=== PATIENT | female | born 1985 | race Caucasian/White ===

== ENCOUNTER → 2017-09-29 14:20 | Outpatient (CLI) | payer BC, SELFPAY ==
[2017-09-29 15:46] LABS: Absolute Lymphocyte Count 1.69 X10^3/ul (0.83-4.51); Basophil# 0.04 X10^3/uL; Basophil% 0.6 % (0-1); Eosinophil# 0.05 X10^3/uL; Eosinophils% 0.8 % (0-5); Hematocrit 38.5 % (37-47); Hemoglobin 12.7 g/dl (12.0-15.0); Lymphocyte # 1.69 X10^3/ul (4.0); Lymphocyte % 25.6 % (19-41); Mean Corpuscular Hgb 31.3 pg (27.0-32.0); Mean Corpuscular Volume 94.8 fL (81-99); Mean Platelet Vol. 10.3 fl (6.2-12.0); Monocyte# 0.77 X10^3/uL; Monocyte% 11.7 % (0-10); Neutrophil # 4.04 X10^3/uL (2.7-7.7); Neutrophil % 61.1 % (47-70); Platelet Count 288 K/mm3 (150-450); RBC Distribution Width CV 12.5 % (11.6-14.6); RBC Distribution Width SD 42.1 fl (35.1-43.9); Red Blood Count 4.06 M/mm3 (4.2-5.4); White Blood Count 6.6 K/mm3 (4.4-11.0)
[2017-09-29 15:47] LABS: POSITIVE COUNT NO; POSITIVE DIFFERENTIAL NO; POSITIVE MORPHOLOGY NO
[2017-09-29 16:12] LABS: ALB/GLOB Ratio 1.1 RATIO (0.9-2.4); AST(SGOT) 9 U/L (15-37); Alanine Aminotransfer ALT/SGPT 15 U/L (13-56); Albumin, Serum 3.9 g/dL (3.2-5.0); Alkaline Phosphatase 50 U/L (45-117); Anion Gap 9 (5-15); BUN 10 mg/dL (7-18); BUN/Creat Ratio 13.6 RATIO (10-20); Calcium,Total 8.5 mg/dL (8.5-10.1); Chloride 105 mmol/L (98-107); Creatinine, Serum 0.74 mg/dL (0.55-1.02); EST Glomerular Filtration Rate 98 mL/min (>60); Est Glom Filt Rate - Afr Amer 118 mL/min (>60); Globulin 3.6 g/dL (2.2-4.2); Glucose 90 mg/dL (70-110); Potassium 3.5 mmol/L (3.5-5.1); Protein, Total 7.5 g/dL (6.4-8.2); Sodium Level 139 mmol/L (136-145); Thyroid Stim Hormone (TSH) 1.11 uIU/mL (0.358-3.74)
== END ==
PROVIDERS: Visit Provider Family Medicine
DX: Z13.0 Encounter for screening for diseases of the blood and blood-forming organs and certain disorders involving the immune mechanism (principal); Z13.29 Encounter for screening for other suspected endocrine disorder; Z79.899 Other long term (current) drug therapy
CPT/HCPCS: 36415; 80053; 84443; 85025

== ENCOUNTER → 2017-11-03 20:34 | Outpatient (CLI) | payer BC, SELFPAY | PROVIDERS: Visit Provider Family Medicine | DX: Z01.419 Encounter for gynecological examination (general) (routine) without abnormal findings (principal) ==

== ENCOUNTER → 2020-03-05 17:41 | Outpatient (CLI) | payer OTHER, SELFPAY | PROVIDERS: Referring Provider Nurse Practitioner Adult Health; Visit Provider Nurse Practitioner Adult Health | DX: Z03.818 Encounter for observation for suspected exposure to other biological agents ruled out (principal) | CPT/HCPCS: 87635; G2023; U0003 ==

== ENCOUNTER 2020-08-02 19:22 | Emergency (ER) | payer OTHER, SELFPAY ==
[2020-08-02 19:23] VITALS: BP 125/76; PULSE 97; RESP 16; TEMP 36.4; O2SAT 100; BMI 23.1
[2020-08-02 19:46] LABS: Red Blood Cells-Urine 0 SEEN /hpf (0-5)
[2020-08-02 19:56] LABS: Absolute Lymphocyte Count 2.03 X10^3/uL (0.83-4.51); Absolute Neutrophil Count 6.8 X10^3/uL (2.0-7.7); Basophil# 0.03 X10^3/uL; Basophil% 0.3 % (0-1); Eosinophil# 0.04 X10^3/uL; Eosinophils% 0.4 % (0-5); Hematocrit 43.4 % (37-47); Hemoglobin 14.9 g/dL (12.0-15.0); Lymphocyte # 2.03 X10^3/ul (4.0); Lymphocyte % 20.9 % (19-41); Mean Corp Hgb Conc 34.3 g/dL (32-36); Mean Corpuscular Volume 93.1 fL (81-99); Mean Platelet Vol. 9.2 fl (6.2-12.0); Monocyte# 0.79 X10^3/uL; Monocyte% 8.1 % (0-10); NRBC Flagged by Analyzer 0 % (0-5); Platelet Count 388 K/mm3 (150-450); RBC Distribution Width SD 41.2 fl (35.1-43.9); Red Blood Count 4.66 M/mm3 (4.2-5.4); White Blood Count 9.7 K/mm3 (4.4-11.0)
[2020-08-02] MEDS: Ondansetron 4 MG/2 ML Vial IV (19:56)
[2020-08-02 19:57] LABS: Color, Urine Yellow (Yellow); Glucose, Dipstick Normal (Normal); Leukocyte Esterase-Dipstick 500 /ul (Negative); Nitrite-Dipstick Negative (Negative); Occult Blood-Urine 10 /ul (Negative); Protein-Dipstick 30 mg/dl (Negative); Specific Gravity, Urine 1.025 (1.002-1.030); Urine Bilirubin Dipstick Negative (Negative); Urine Clarity Cloudy (Clear); Urine Urobilinogen 1 mg/dl (Normal)
[2020-08-02] MEDS: 0.9% Normal Saline 1,000 ML 1000 ML IV (19:59)
[2020-08-02] MEDS: morphine 8 MG/ML Syringe 6 MG IV (19:59)
[2020-08-02 20:00] LABS: Ketone-Dipstick 150 mg/dl (Negative)
[2020-08-02 20:03] LABS: Squamous Epithelial Cells - UA 10-25 SEEN /hpf (5-10)
[2020-08-02 20:04] LABS: Bacteria 1+ /hpf (None Seen); Mucous, Urine 1+ /hpf (<or=2+); White Blood Cells 5-10 SEEN /hpf (0-5)
[2020-08-02 20:08] LABS: Internal QC Validated? YES +Cl - CLEAR BKGD; Pregnancy, Serum, hCG Quali. POSITIVE Negative
--- NOTE | 2020-08-02 20:17 | ED.VIS.GEN ---
History of Present Illness Chief Complaint: Nausea/Vomiting Informant: Patient Onset: Days Maximum Severity: Mild Narrative: Vomiting and loose stool. The patient is complaining of the above for the last few days, she indicates she had missed a. Has some breast discomfort took a home test that was positive, she is having no pelvic pain or vaginal bleeding or discharge history of ectopic , she would be uncomplicated prior 2 pregnancies last about 10 years ago. 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 negative no recent exposures to anyone has been sick otherwise, no antibiotics no sick contacts or tainted food bowel habits show no blood urinary habits normal no fever no cough no real abdominal pain just a persistent nausea Past Medical History - Allergies and Home Meds Allergies/Adverse Reactions: Allergies No Known Allergies Allergy (Verified 08/02/20 19:25) Primary Care Physician: Care Physician,No Primary [Primary Care Provider] - Past Medical History: - - Cholecystectomy and as above Smoking Status: Never smoker Review of Systems General: Denies: Chills, Fever, Sweats Eyes: Denies: Visual changes - bilaterally, Diplopia ENT: Denies: Rhinorrhea, Sore throat Cardiovascular: Denies: Chest pain, Palpitations Respiratory: Denies: Dyspnea, Cough, Dyspnea on exertion Gastrointestinal: Reports: Nausea, Diarrhea. Denies: Abdominal pain, Melena, Hematochezia Genitourinary: Denies: Dysuria, Hematuria, Frequency Musculoskeletal: Denies: Back pain, Extremity Pain Skin: Denies: Rash, Wounds Neurological: Denies: Headache, Weakness, Numbness Physical Exam Vital Signs/Narrative: Vital Signs Temp Pulse Resp BP Pulse Ox 08/02/20 19:23 97.5 F L 97 16 125/76 H 100 General: Well nourished, Well developed, No Acute Distress Head: Normocephalic, Atraumatic Eyes: Perrl, EOMI ENT: Moist mucous membranes, No rhinorrhea Neck: Supple, Nontender Cardiovascular: Regular rate, Regular rhythm, No murmurs Respiratory: No distress, CTA bilaterally, Chest nontender Abdomen: Soft, Nontender, Nondistended, Normal bowel sounds Back: Nontender, Normal Inspection Extremities: Nontender, No edema Skin: Normal color, No rash Neurological: Alert, Oriented x3, Cranial nerves II-XII grossly intact, Normal Strength, Normal Sensation Psychological: Normal affect, Normal Mood Diagnostic/Tx/Re-eval - Medical Decision Making The patient's vital signs are unremarkable the abdomen shows a nonspecific sense of crampy discomfort no rebound guarding organomegaly, she has had the vomiting associate with loose stools, no coronavirus exposures or exposures to tainted food or conditions. Clinically she looks well given her reported given all the above IV fluids ED screening evaluation The patient's ED screening evaluation generally unremarkable the UA showed signs of UTI versus contamination it was sent for culture she was given IV Rocephin, she complained of a nonspecific sharp chest pain while she was laying flat in the bed EKG was done that showed sinus rhythm no acute injury intervals within normal range I discussed all the above with her she is comfortable with discharge home she is now believes she may have contacted some type of GI bug I explained to her again the exact etiology of why she is having vomiting and loose stools is unclear it certainly possible but the differential is very broad she is able to hydrate herself she will be started on Keflex Zofran she will make arrangements see [facility] and return for change in symptoms Home stable Final impression vomiting, , ED Disposition - Plan for ED Patient: Diagnosis: Vomiting affecting Instructions: ED Vomiting (Adult), ED Vomiting and Diarrhea ..., ED Food Poison Or Gastroenteritis Prescriptions: Cephalexin [Keflex] 500 mg PO Q6 #40 cap Prescription Printed Ondansetron [Zofran Odt] 8 mg PO Q8H PRN PRN #20 tab PRN Reason: Nausea Prescription Printed Referrals: Care Physician,No Primary [Primary Care Provider] - Aly Del Castillo MD [STAFF PHYSICIAN] -
[2020-08-02 20:19] LABS: AST(SGOT) 17 U/L (15-37); Alanine Aminotransfer ALT/SGPT 15 U/L (13-56); Alkaline Phosphatase 60 U/L (45-117); Anion Gap 10 (5-15); BUN 10 mg/dL (7-18); BUN/Creat Ratio 14.8 RATIO (10-20); Calcium,Total 8.8 mg/dL (8.5-10.1); Chloride 104 mmol/L (98-107); Creatinine, Serum 0.67 mg/dL (0.55-1.02); EST Glomerular Filtration Rate 106 mL/min (>60); Est Glom Filt Rate - Afr Amer 129 mL/min (>60); Estimated Creatinine Clearance 119.35 ml/min; Globulin 4.2 g/dL (2.2-4.2); Glucose 93 mg/dL (74-106); Lipase 66 U/L (73-393); Potassium 3.7 mmol/L (3.5-5.1); Protein, Total 8.2 g/dL (6.4-8.2); Sodium Level 136 mmol/L (136-145)
--- NOTE | 2020-08-02 21:01 | ED.RN ---
RN TO BEDSIDE TO GIVE ICE CHIPS PER PT REQUEST. PT C/O NONSPECIFIC CHEST PAIN. DR. BIRMINGHAM NOTIFIED AT THIS TIME. RESPIRATORY NOTIFIED AT THIS TIME TO OBTAIN EKG.
--- NOTE | 2020-08-02 21:18 | EKG12_ITS ---
Test Reason : CP Blood Pressure : / mmHG Vent. Rate : 053 BPM Atrial Rate : 053 BPM P-R Int : 130 ms QRS Dur : 078 ms QT Int : 444 ms P-R-T Axes : 055 043 021 degrees QTc Int : 416 ms Sinus bradycardia Otherwise normal ECG Confirmed by GLENYS FALLON, PERRY ([id number]), editorial specialist FLORY CALABRESE ([id number]) on 08/05/2020 8:41:20 AM Referred By: CODY Confirmed By:PERRY VERONICA MD
[2020-08-02] MEDS: Ceftriaxone 1 GM/50 ML BAG IV (21:42)
[2020-08-02 22:21] VITALS: BP 102/66; PULSE 61; RESP 18; O2SAT 100
== END 2020-08-02 22:23 | disposition home or self-care (01) ==
LOC: ED 20:09
PROVIDERS: Emergency Provider Emergency Medicine
DX: O21.9 Vomiting of pregnancy, unspecified (principal); Z3A.00 Weeks of gestation of pregnancy not specified
CPT/HCPCS: 80053; 81001; 83690; 84703; 85025; 87086; 87088; 93005; 96365; 96375; 99284; J7030; A4216; J2405

== ENCOUNTER 2020-08-17 16:04 | Emergency (ER) | payer OTHER, SELFPAY ==
[2020-08-17 16:05] VITALS: BP 130/79; PULSE 117; RESP 16; TEMP 36.1; O2SAT 100; BMI 23.5
--- NOTE | 2020-08-17 16:16 | ED.DCSUM_ITS ---
History of Present Illness Chief Complaint: Nausea/Vomiting Narrative: This patient is a 35-year-old female who presents with nausea and vomiting. She is G3, P2. She is approximately 10 weeks by dates. She presents with 1 day of severe nausea and vomiting. She also complains of some myalgias. No diarrhea. No pelvic or abdominal pain. No vaginal bleeding. No urinary symptoms. She was seen a couple of weeks ago for similar symptoms. [place] was helping but she ran out of this. She has not yet arranged for any obstetrics follow-up. Past Medical History - Allergies and Home Meds Allergies/Adverse Reactions: Allergies No Known Allergies Allergy (Verified 08/17/20 16:07) Primary Care Physician: Care Physician,No Primary [Primary Care Provider] - Past Medical History: None Smoking Status: Former smoker Review of Systems All systems negative except as indicated General: Denies: Fever Eyes: Denies: Visual changes - bilaterally Cardiovascular: Denies: Chest pain Respiratory: Denies: Dyspnea Gastrointestinal: Reports: Nausea, Vomiting. Denies: Abdominal pain Musculoskeletal: Reports: Myalgias Skin: Denies: Rash Neurological: Denies: Headache Hematologic: Denies: Easy bruising Allergy: Denies: Uticaria Physical Exam Vital Signs/Narrative: Vital Signs Temp Pulse Resp BP Pulse Ox 08/17/20 16:05 96.9 F L 117 H 16 130/79 H 100 Inital Vital Signs reviewed: Yes General: Well nourished Head: Normocephalic Eyes: EOMI ENT: Moist mucous membranes Cardiovascular: Regular rhythm, Tachycardia Respiratory: No distress, CTA bilaterally Abdomen: Soft, Nontender, Nondistended Extremities: Nontender Skin: Normal color Neurological: Alert Psychological: Normal affect Diagnostic/Tx/Re-eval Laboratory Results 08/17/20 08/17/20 08/17/20 16:45 17:30 17:30 WBC 12.4 H RBC 4.29 Hgb 13.8 Hct 40.8 MCV 95.1 MCH 32.2 H MCHC 33.8 RDW Std Deviation 41.6 RDW Coeff of Imtiaz 11.9 Plt Count 379 MPV 9.3 Immature Gran % (Auto) 0.400 Neut % (Auto) 85.1 H Lymph % (Auto) 9.1 L [place] % (Auto) 5.2 Eos % (Auto) 0.0 Baso % (Auto) 0.2 Absolute Neuts (auto) 10.5 H Absolute Lymphs (auto) 1.13 Nucleated RBC % 0 Sodium 139 Potassium 4.2 Chloride 109 H Carbon Dioxide 23.0 Anion Gap 7 BUN 8 Creatinine 0.54 L Estim Creat Clear Calc 142.75 Est GFR (MDRD) Af Amer 167 Est GFR (MDRD) Non-Af 138 BUN/Creatinine Ratio 14.9 Glucose 90 Calcium 8.4 L Total Bilirubin 0.40 AST 7 L ALT 14 Alkaline Phosphatase 50 Total Protein 7.1 Albumin 3.4 Globulin 3.7 Albumin/Globulin Ratio 0.9 Urine Color Yellow Urine Clarity Sl. Cloudy Urine pH 5.0 Ur Specific [place] 1.030 Urine Protein 30 H Urine Glucose (UA) Normal Urine Ketones 150 H Urine Occult Blood 10 H Urine Nitrite Negative Urine Bilirubin Negative Urine Urobilinogen Normal Ur Leukocyte Esterase 25 H Urine RBC 0-5 SEEN Urine WBC 0-5 SEEN Ur Squamous Epith Cells 0-5 SEEN Urine Bacteria RARE Urine Mucus 0 SEEN - Medical Decision Making Laboratory studies as above notable only for ketones in the urine consistent with a component of dehydration. She was treated with IV fluid and Zofran. She is resting comfortably on reevaluation, she has not vomited but does still have some mild nausea. We will p.o. challenge prior to discharge. Patient was given a referral to obstetrics as well as a prescription for Zofran. She does understand to return for new or worsening symptoms otherwise to follow-up as an outpatient and she was discharged home. ED Disposition - Plan for ED Patient: Disposition: Home or Assisted Living Diagnosis: Vomiting affecting Instructions: ED Vomiting (Adult), ED Hyperemesis Gravidarum Prescriptions: Ondansetron [Zofran Odt] 4 mg PO Q8H PRN PRN #10 tab PRN Reason: Nausea Prescription Printed Referrals: Care Physician,No Primary [Primary Care Provider] - Matilda Her DO [STAFF PHYSICIAN] -
[2020-08-17] MEDS: 0.9% Normal Saline 1,000 ML 999 ML IV (16:27)
[2020-08-17] MEDS: Ondansetron 4 MG/2 ML Vial IV (16:27)
[2020-08-17 16:49] LABS: Mucous, Urine 0 SEEN /hpf (<or=2+)
[2020-08-17 17:18] LABS: Color, Urine Yellow (Yellow); Glucose, Dipstick Normal (Normal); Leukocyte Esterase-Dipstick 25 /ul (Negative); Nitrite-Dipstick Negative (Negative); Occult Blood-Urine 10 /ul (Negative); Protein-Dipstick 30 mg/dl (Negative); Urine Bilirubin Dipstick Negative (Negative); Urine Clarity Sl. Cloudy (Clear); Urine Urobilinogen Normal (Normal)
[2020-08-17 17:21] LABS: Bacteria RARE /hpf (None Seen); Ketone-Dipstick 150 mg/dl (Negative); Red Blood Cells-Urine 0-5 SEEN /hpf (0-5); Squamous Epithelial Cells - UA 0-5 SEEN /hpf (5-10); White Blood Cells 0-5 SEEN /hpf (0-5)
[2020-08-17 17:39] LABS: Absolute Lymphocyte Count 1.13 X10^3/uL (0.83-4.51); Absolute Neutrophil Count 10.5 X10^3/uL (2.0-7.7); Basophil# 0.02 X10^3/uL; Basophil% 0.2 % (0-1); Hematocrit 40.8 % (37-47); Hemoglobin 13.8 g/dL (12.0-15.0); Lymphocyte # 1.13 X10^3/ul (4.0); Lymphocyte % 9.1 % (19-41); Mean Corp Hgb Conc 33.8 g/dL (32-36); Mean Corpuscular Hgb 32.2 pg (27.0-32.0); Mean Corpuscular Volume 95.1 fL (81-99); Mean Platelet Vol. 9.3 fl (6.2-12.0); Monocyte# 0.65 X10^3/uL; Monocyte% 5.2 % (0-10); NRBC Flagged by Analyzer 0 % (0-5); Neutrophil # 10.54 X10^3/uL (2.7-7.7); Neutrophil % 85.1 % (47-70); Platelet Count 379 K/mm3 (150-450); RBC Distribution Width CV 11.9 % (11.6-14.6); RBC Distribution Width SD 41.6 fl (35.1-43.9); Red Blood Count 4.29 M/mm3 (4.2-5.4); White Blood Count 12.4 K/mm3 (4.4-11.0)
[2020-08-17 17:52] LABS: ALB/GLOB Ratio 0.9 RATIO (0.9-2.4); AST(SGOT) 7 U/L (15-37); Alanine Aminotransfer ALT/SGPT 14 U/L (13-56); Albumin, Serum 3.4 g/dL (3.2-5.0); Alkaline Phosphatase 50 U/L (45-117); Anion Gap 7 (5-15); BUN 8 mg/dL (7-18); BUN/Creat Ratio 14.9 RATIO (10-20); Calcium,Total 8.4 mg/dL (8.5-10.1); Chloride 109 mmol/L (98-107); Creatinine, Serum 0.54 mg/dL (0.55-1.02); EST Glomerular Filtration Rate 138 mL/min (>60); Est Glom Filt Rate - Afr Amer 167 mL/min (>60); Estimated Creatinine Clearance 142.75 ml/min; Globulin 3.7 g/dL (2.2-4.2); Glucose 90 mg/dL (74-106); Potassium 4.2 mmol/L (3.5-5.1); Protein, Total 7.1 g/dL (6.4-8.2); Sodium Level 139 mmol/L (136-145)
[2020-08-17 18:30] VITALS: PULSE 97; RESP 16; O2SAT 99
== END 2020-08-17 18:31 | disposition home or self-care (01) ==
PROVIDERS: Emergency Provider Emergency Medicine
DX: O21.9 Vomiting of pregnancy, unspecified (principal); Z87.891 Personal history of nicotine dependence; Z3A.10 10 weeks gestation of pregnancy
CPT/HCPCS: 80053; 81001; 85025; 96374; 99283; A4216; J2405

== ENCOUNTER 2020-09-17 20:03 | Emergency (ER) | payer OTHER, SELFPAY ==
[2020-09-17 20:04] VITALS: BP 110/59; PULSE 87; RESP 16; TEMP 36.3; O2SAT 98; BMI 22.8
--- NOTE | 2020-09-17 20:44 | ED.VISSUMM ---
- ER Visit Summary Date of Service: 09/17/20 Chief Complaint: [Nausea and vomiting] History of Present Illness: The patient is a 35 F [presents to the emergency department complaint of nausea and vomiting that is been going on for the last 2 days patient states that she believes that she is about 3 months . She has had several visits to the emergency department for similar complaint of vomiting related to . Her last menstrual period she believes was mid May. She is . She has not followed up with [facility] yet. Patient states she does not have time. Patient denies any abdominal pain or vaginal bleeding. Patient has had prior cholecystectomy. No other medical history. She denies urinary symptoms. She denies Covid symptoms.] Physical Examination: [HEENT-PERRLA, EOMI. Cranial nerves II through XII grossly intact. TMs clear. Mucous membranes moist. No adenopathy. Cardiovascular-regular rate and rhythm without murmur or ectopy Lungs-clear to auscultation, chest wall stable without crepitus or subcu emphysema Abdomen-normoactive bowel sounds, soft. Patient has some mild diffuse suprapubic tenderness to palpation. There is no rebound, rigidity, or peritoneal signs. Extremities-intact ?4, normal range of motion, normal pulses, atraumatic] Test Results: [CBC with differential showed a white count 8.6, hemoglobin 14, hematocrit 41, plates 398. Chemistries unremarkable. Urinalysis was positive for 150 ketones but no signs of infection. Pelvic ultrasound obtained showed single live intrauterine measuring 13 weeks and 3 days.] Emergency Department Course and Treatment: [Patient had an IV line established. She was medicated with Zofran 4 mg IV. She was given 2 L normal saline fluid boluses.] Treatment Plan: [We will be given a prescription for Zofran. She is advised to follow-up with [facility] for care. Patient states that she has somebody in mind that she can follow-up with.] Disposition: [Discharged home in stable condition] Impression: [Hyperemesis gravidarum Dehydration] This note was generated with [email or web address] software. It may contain incorrect words, spelling, and punctuation that were not noted in review of the chart prior to signing ED Disposition - Plan for ED Patient: Referrals: Care Physician,No Primary [Primary Care Provider] -
--- NOTE | 2020-09-17 20:46 | US_ITS ---
STUDY: TRIMESTER OBSTETRICAL ULTRASOUND REASON FOR EXAM: Female, 35 years old NAUSEA AND VOMITING LMP: 06/12/2020 TECHNIQUE: Transabdominal TECHNICAL QUALITY: Adequate. PRIOR ULTRASOUND: None. FINDINGS: There is visualization of a single gestational sac in a normal intrauterine position. The gestational sac shape is within normal limits. There is no demonstrated yolk sac. There is visualization of the placenta and is anterior and fundal. There is visualization of a live embryo. The crown-rump length (CRL) measures 7.39 cm, indicating an estimated gestational age (EGA) of 13 weeks, 3 days. There is demonstrated cardiac activity with a heart rate of 164 bpm. The biparietal diameter measures 2.34 cm corresponding to gestational age of 13 weeks and 6 days. The head circumference measures 8.91 cm corresponding to gestational age of 13 weeks and 6 days. The abdominal circumference measures 6.72 cm corresponding to a gestational age of 13 weeks and 2 days. The femur length measures 1.07 cm corresponding to gestational age of 13 weeks and 1 day. The estimated gestation age (EGA) by LMP is 13 weeks, 6 days. The estimated date of delivery (OLIVIA) by LMP is 03/19/2021. The estimated gestation age (EGA) by US is 13 weeks, 3 days. The estimated date of delivery (OLIVIA) by US is 03/22/2021. The uterus measures 15.5 x 7.1 x 11.7 cm. There is no demonstrated uterine fibroid. The cervix is closed. The right ovary measures 1.9 x 1.0 x 1.4 cm. There is no right ovarian cyst. There is no visualized right adnexal mass or complex lesion. The left ovary measures 3.7 x 2.6 x 2.6 cm. There is no left ovarian cyst. There is no visualized left adnexal mass or complex lesion. There is no fluid in the cul de sac. US/Init OB < 14Wks US IMPRESSION: Single intrauterine with an estimated gestational age by ultrasound of 13 weeks and 3 days. Electronically Signed: Estefani Ballard MD at 22:05 EST Tel , Service support ,
[2020-09-17 20:56] LABS: Absolute Lymphocyte Count 1.47 X10^3/uL (0.83-4.51); Absolute Neutrophil Count 6.4 X10^3/uL (2.0-7.7); Basophil# 0.02 X10^3/uL; Basophil% 0.2 % (0-1); Eosinophil# 0.04 X10^3/uL; Eosinophils% 0.5 % (0-5); Hematocrit 41.4 % (37-47); Hemoglobin 14.4 g/dL (12.0-15.0); Lymphocyte # 1.47 X10^3/ul (4.0); Mean Corp Hgb Conc 34.8 g/dL (32-36); Mean Corpuscular Hgb 31.6 pg (27.0-32.0); Mean Platelet Vol. 9.2 fl (6.2-12.0); Monocyte# 0.69 X10^3/uL; NRBC Flagged by Analyzer 0 % (0-5); Neutrophil # 6.41 X10^3/uL (2.7-7.7); Neutrophil % 74.2 % (47-70); Platelet Count 398 K/mm3 (150-450); RBC Distribution Width CV 11.9 % (11.6-14.6); RBC Distribution Width SD 39.7 fl (35.1-43.9); Red Blood Count 4.55 M/mm3 (4.2-5.4); White Blood Count 8.6 K/mm3 (4.4-11.0)
[2020-09-17] MEDS: 0.9% Normal Saline 1,000 ML 1000 ML IV ×2 (21:06→22:09)
[2020-09-17] MEDS: Ondansetron 4 MG/2 ML Vial IV (21:06)
[2020-09-17 21:23] LABS: Anion Gap 8 (5-15); BUN 5 mg/dL (7-18); BUN/Creat Ratio 9.5 RATIO (10-20); Calcium,Total 8.9 mg/dL (8.5-10.1); Chloride 108 mmol/L (98-107); Creatinine, Serum 0.53 mg/dL (0.55-1.02); EST Glomerular Filtration Rate 141 mL/min (>60); Est Glom Filt Rate - Afr Amer 170 mL/min (>60); Estimated Creatinine Clearance 150.88 ml/min; Glucose 82 mg/dL (74-106); Potassium 3.4 mmol/L (3.5-5.1); Sodium Level 137 mmol/L (136-145)
[2020-09-17 22:15] VITALS: BP 120/87; PULSE 77; RESP 18; O2SAT 99
[2020-09-17 22:16] LABS: Bacteria 0 SEEN /hpf (None Seen); Red Blood Cells-Urine 0 SEEN /hpf (0-5)
[2020-09-17 22:20] LABS: Color, Urine Yellow (Yellow); Glucose, Dipstick Normal (Normal); Leukocyte Esterase-Dipstick 100 /ul (Negative); Nitrite-Dipstick Negative (Negative); Occult Blood-Urine 10 /ul (Negative); Protein-Dipstick 15 mg/dl (Negative); Specific Gravity, Urine 1.025 (1.002-1.030); Urine Bilirubin Dipstick Negative (Negative); Urine Clarity Clear (Clear); Urine Urobilinogen Normal (Normal)
[2020-09-17 22:22] LABS: Ketone-Dipstick 150 mg/dl (Negative)
[2020-09-17 22:27] LABS: Mucous, Urine 2+ /hpf (<or=2+); Squamous Epithelial Cells - UA 0-5 SEEN /hpf (5-10); White Blood Cells 0-5 SEEN /hpf (0-5)
--- NOTE | 2020-09-17 22:51 | ED.DEP ---
ED Disposition - Plan for ED Patient: Instructions: ED Hyperemesis Gravidarum, Dehydration Prescriptions: Ondansetron [Zofran Odt] 4 mg PO Q8H PRN PRN #10 tab PRN Reason: Nausea Prescription Printed Referrals: Care Physician,No Primary [Primary Care Provider] - Matilda Her DO [STAFF PHYSICIAN] - 3-5 Days
[2020-09-17 23:16] VITALS: BP 112/71; PULSE 73; RESP 16; O2SAT 98
== END 2020-09-17 23:17 | disposition home or self-care (01) ==
LOC: ED 21:13
PROVIDERS: Emergency Provider Emergency Medicine
DX: O21.0 Mild hyperemesis gravidarum (principal); E86.0 Dehydration; Z3A.13 13 weeks gestation of pregnancy
CPT/HCPCS: 76801; 80048; 81001; 85025; 96361; 96374; 99283; J7030; A4216; J2405

== ENCOUNTER → 2024-08-01 | Outpatient (CLI) | payer OTHER, SELFPAY ==
--- NOTE | 2024-08-01 08:58 | US_ITS ---
STUDY: ULTRASOUND BREAST - LEFT REASON FOR EXAM: Female, 39 years old. Palpable lump left breast. TECHNIQUE: Axial and longitudinal images of the LEFT breast were performed with a high resolution ultrasound transducer. # OF IMAGES: 42 COMPARISON: Comparison is made with prior mammogram done earlier today. FINDINGS: LEFT Breast: The palpable lump corresponds to a 3.6 cm x 3.7 cm x 2.4 cm cyst with septation and low-level echoes within it. This is at the 3:00 position breast at 6 cm from the nipple. Drainage is recommended. Adjacent to this, there is a 9 mm x 10 mm x 6 mm cyst. US/Breast Limited Unilateral IMPRESSION: The palpable lump corresponds to a 3.6 cm x 3.7 cm x 2.7 cm septated cyst with low level echoes within it. Drainage is recommended. Adjacent to this, there is a 9 mm x 10 mm x 6 mm cyst. ASSESSMENT CATEGORY: BIRADS Category 4: Suspicious - Biopsy Should Be Considered. A letter regarding these results will be sent to the patient by the facility within 30 days. Electronically Signed: Emir Lester MD at 11:02 EST ,
--- NOTE | 2024-08-01 08:58 | BI_ITS ---
MAMMOGRAPHY - BILATERAL DIAGNOSTIC REASON FOR EXAM: Female, 39 years old. Palpable lump in the upper outer quadrant of the left breast. PERTINENT HISTORY: Non-contributory. TECHNIQUE: Digital bilateral breast joann (3D mammographic acquisition) in the CC and MLO projections. 2-D mediolateral oblique (MLO) and craniocaudad (CC) views of both breasts were obtained. CAD: Full Field Digital Mammography with Computer Added Detection was performed. COMPARISON: None. Baseline examination. FINDINGS: Breast Composition: The breasts are extremely dense, which lowers the sensitivity of mammography. The palpable lump corresponds to a 3 cm x 2.7 cm well-defined nodule in the upper outer aspect of the left breast. Correlation with ultrasound is recommended. No other significant abnormalities are identified. BI/DIAG MAMM W/CAD, BILAT IMPRESSION: 3 cm x 2.7 cm well-defined nodule in the upper outer aspect of the left breast corresponding to the palpable abnormality. Correlation with ultrasound is recommended. ASSESSMENT CATEGORY: BIRADS Category 0: Incomplete. Need additional imaging evaluation. A letter regarding these results will be sent to the patient by the facility within 30 days. Approximately 10% of breast cancers are not detected by mammography. A normal mammogram should not delay biopsy of a clinically suspicious abnormality. Electronically Signed: Emir Lester MD at 9:50 EST ,
== END | disposition home or self-care (01) ==
PROVIDERS: Referring Provider Nurse Practitioner Family; Visit Provider Nurse Practitioner Family
DX: N63.20 Unspecified lump in the left breast, unspecified quadrant (principal)
CPT/HCPCS: 76642; 77062; 77066; G0279

== ENCOUNTER 2024-12-26 17:47 | Emergency (ER) | payer OTHER, SELFPAY ==
[2024-12-26 17:47] VITALS: BP 158/97; PULSE 73; RESP 16; TEMP 36.9; O2SAT 100; BMI 29.8
[2024-12-26] MEDS: 0.9% Normal Saline (1000mL) 1,000 ML 999 ML IV ×2 (18:22→21:50)
[2024-12-26] MEDS: Ondansetron 4 MG/2 ML Vial IV (18:22)
[2024-12-26 18:28] LABS: Bacteria 0 SEEN /hpf (None Seen); Mucous, Urine 0 SEEN /hpf (<or=2+)
[2024-12-26 18:34] LABS: Color, Urine Straw (Yellow); Glucose, Dipstick Normal (Normal); Ketone-Dipstick Negative (Negative); Leukocyte Esterase-Dipstick 500 /ul (Negative); Nitrite-Dipstick Negative (Negative); Occult Blood-Urine Negative /ul (Negative); Protein-Dipstick Negative (Negative); Urine Bilirubin Dipstick Negative (Negative); Urine Clarity Clear (Clear); Urine Urobilinogen Normal (Normal)
--- NOTE | 2024-12-26 18:46 | CT_ITS ---
PROCEDURE: ABDOMEN/PELVIS W IV CONT ONLY 12/26/2024 REASON FOR EXAM: LOWER ABDOMINAL PAIN TECHNIQUE: Abdomen and pelvis CT with intravenous contrast. Coronal and Sagittal reconstruction series were provided. PATIENT PREPARATION: Per protocol ORAL CONTRAST TYPE: None. AMOUNT: mL One or more dose reduction techniques were used (e.g., Automated exposure control, adjustment of the mA and/or kV according to patient size, use of iterative reconstruction technique. FINDINGS: Lung bases: Lung bases are clear. Liver: Normal size. No mass. Gallbladder: Surgically absent. Spleen: Normal size. Pancreas: Normal size without evidence of mass surrounding inflammation or ductal dilation. Adrenals: Unremarkable. Kidneys: Normal renal sizes. No hydronephrosis. Bladder: Unremarkable. Reproductive Organs: Unremarkable. Bowel: No bowel obstruction. Appendix: Unremarkable. Lymph nodes: Unremarkable. Vasculature: The abdominal aorta and IVC are normal. Peritoneum / Retroperitoneum: Unremarkable. Bones: Unremarkable. Small umbilical hernia containing fat. CT/Abdomen/Pelvis W IV Cont ONLY IMPRESSION: NO ACUTE FINDINGS AT THE ABDOMEN OR PELVIS ON CONTRAST-ENHANCED CT. Reading Location: [id number]
[2024-12-26 18:47] LABS: Red Blood Cells-Urine 0-5 SEEN /hpf (0-5); Squamous Epithelial Cells - UA 0-5 SEEN /hpf (5-10); Trichomonas 0-5 SEEN /hpf (None Seen); White Blood Cells 0-5 SEEN /hpf (0-5)
[2024-12-26 18:47] LABS: Lipase 22 U/L (13-75)
[2024-12-26 18:48] LABS: ALB/GLOB Ratio 1.4 RATIO (0.9-2.4); AST(SGOT) 18 U/L (<=31); Alanine Aminotransfer ALT/SGPT 9 U/L (<=34); Albumin, Serum 4.1 g/dL (3.5-5.0); Alkaline Phosphatase 66 U/L (35-104); Anion Gap 12 (5-15); BUN 12 mg/dL (4-19); BUN/Creat Ratio 15.2 RATIO (10-20); Calcium,Total 8.4 mg/dL (7.6-11.0); Carbon Dioxide 19.3 mmol/L (21.0-32.0); Chloride 105 mmol/L (98-108); EST Glomerular Filtration Rate 96 (>60); Glucose 104 mg/dL (70-99); Potassium 3.9 mmol/L (3.3-5.1); Protein, Total 7.1 g/dL (5.9-8.4); Sodium Level 136 mmol/L (133-145); Total Bilirubin 0.19 mg/dL (0.00-1.30)
[2024-12-26 18:52] VITALS: BP 138/89; PULSE 63; RESP 16; O2SAT 100
[2024-12-26] MEDS: Morphine 4 MG/ML Syringe IV ×2 (18:52→20:47)
--- NOTE | 2024-12-26 18:54 | EX.ED.DYSGE1 ---
HPI History of Present Illness Chief Complaint: Abd Pain Narrative Narrative: Patient is a 31-year-old female with no known significant past medical history who presented to the emergency department the chief complaint of abdominal pain nausea vomiting diarrhea. She states that she was ill last Tuesday and notes that she got better over the weekend and then her symptoms restarted again. States that she does have body aches and denies any recent contacts. Patient states that she has had her gallbladder out. Patient rates her abdominal pain a 8 out of 10. PFSH PFSH Medical History Umbilical hernia Abnormal mammogram of left breast Abnormal ultrasound of breast Home Medications ?Medication ?Instructions ?Recorded ?Last Taken ?Type hyoscyamine sulfate 0.125 mg 0.25 mg (2 x 0.125 mg) PO Q4H PRN 12/26/24 Unknown Rx tablet (Levsin) dyspepsia #30 tabs ondansetron 4 mg disintegrating 4 mg PO Q6H PRN nausea and 12/26/24 Unknown Rx tablet vomiting #20 tabs Allergy/AdvReac Type Severity Reaction Status Date / Time No Known Allergies Allergy Verified 12/26/24 17:47 Surgical History H/O tubal ligation S/P cholecystectomy Social History adopted: No household members: children housing: house number of children: 3 current occupational status: employed current occupation: [employer] pets and animals: Yes pets and animals: cat(s) history of recent travel: No sexually active: Yes Smoking Status: Never smoker alcohol intake: current details: social substance use type: does not use well-balanced diet: about half the time caffeine: Yes Type: carbonated beverages Number of servings: 3 eating out: 1-3 times/week during the past year weight has: remained stable what type of physical activity do you participate in: walking kelin/gnosticist: None seatbelt use: always do you feel safe at home: Yes additional social history: boyfriend - DJ ROS ROS ED ROS Narrative Constitutional: Denies fevers, chills, headaches Cardiovascular: Denies chest pain Respiratory: Denies cough or wheezing shortness of breath Abdomen: Complains abdominal pain as noted above as well as nausea vomiting diarrhea : Denies urinary symptoms Neurological: Denies numbness, weakness, tingling Musculoskeletal: Denies back pain Skin: Denies rashes or lesions EXAM Physical Exam Narrative Exam Narrative: General: Patient was lying in bed rest comfortably did not appear to be acute distress Head: Atraumatic, normocephalic Eyes: PERRL bilaterally, EOMI bilaterally, no conjunctival injection noted Neck: Soft, supple, trachea midline Cardiovascular: Regular rate and rhythm Respiratory: Clear to auscultation bilaterally Abdomen: Soft, nondistended, tender to palpation diffusely throughout the abdomen however she had increased tenderness palpation the left lower quadrant no rebound or guarding on exam Extremities: +5/5 strength noted in the bilateral upper and lower extremities, radial pulses +2/4 in the bilateral extremities, no pedal edema exam Neurological: Patient follow commands knew that she was at [facility] year is 2024 Skin: Warm, dry, tact no rashes or lesions noted Const Vital Signs: 12/26/24 17:47 12/26/24 18:52 12/26/24 20:00 Temperature 98.4 F Temperature Source Oral Pulse Rate 73 63 82 Respiratory Rate 16 16 17 Blood Pressure 158/97 H 138/89 H 130/71 H Blood Pressure Mean 117 105 90 Pulse Ox 100 100 98 Oxygen Delivery Method Room Air Room Air Room Air MDM MDM MDM Narrative Medical decision making narrative: Patient is a 39-year-old female who presented to the emergency department chief complaint of abdominal pain nausea vomit diarrhea. On the differential diagnose includes but not limited to diverticulitis, appendicitis, viral gastroenteritis, bowel obstruction. Once workup is obtained reviewed she will be reevaluated. Patient be given IV fluids, morphine Zofran. Patient CBC was reviewed showed no evidence leukocytosis white blood count normal 11, hemoglobin is at 12.6, plate count was noted be normal at 275. Patient sodium was 136, potassium normal 3.9, creatinine was 0.80. Patient AST and ALT were 18 and 9 respectively with a normal total bilirubin of 0.19. Patient lipase normal at 22, test negative. Patient urinalysis reviewed and showed no evidence of infection. Patient CT abdomen pelvis with IV contrast was reviewed showed no acute processes. Reevaluation the patient she is still having pain therefore she was given Bentyl. On reevaluation the patient again she is still having pain she was given morphine again. On reevaluation again for a third time she is still having pain therefore she was given Levsin. I offered her admission to the hospital and she states that she wanted to see if the Levsin would help her. On reevaluation the patient again she would like to go home she is feeling better. I once again offered her admission for observation for her intractable abdominal pain of unknown etiology however she states that she wants to go home and she will come back if her symptoms worsen. Patient will be given prescriptions for Levsin and Zofran. She was advised follow-up with primary care physician outpatient setting return with worsening symptoms or concerns. She is agreeable this plan all course concerns answered she is discharged home in stable condition. Family member bedside is also agreeable with this. Lab Data Labs: Laboratory Results - last 24 hr 12/26/24 12/26/24 12/26/24 18:13 18:13 18:24 WBC Cancelled Corrected WBC Cancelled RBC Cancelled Hgb Cancelled Hct Cancelled MCV Cancelled MCH Cancelled MCHC Cancelled RDW Std Deviation Cancelled RDW Coeff of Imtiaz Cancelled Plt Count Cancelled MPV Cancelled Immature Gran % (Auto) Cancelled Neut % (Auto) Cancelled Lymph % (Auto) Cancelled Payne % (Auto) Cancelled Eos % (Auto) Cancelled Baso % (Auto) Cancelled Absolute Neuts (auto) Cancelled Absolute Lymphs (auto) Cancelled Total Counted Cancelled Neutrophils % (Manual) Cancelled Band Neutrophils % Cancelled Lymphocytes % (Manual) Cancelled Monocytes % (Manual) Cancelled Eosinophils % (Manual) Cancelled Basophils % (Manual) Cancelled Metamyelocytes % Cancelled Myelocytes % Cancelled Promyelocytes % Cancelled Blast Cells % Cancelled Plasma Cell % (Manual) Cancelled Other Cells % Cancelled Nucleated RBC % Cancelled Nucleated RBCs/100 WBC Cancelled Differential Comment Cancelled Diff Path Review Cancelled Hypersegmented Neuts Cancelled Atypical Lymphocytes Cancelled Reactive Lymphocytes Cancelled Smudge Cells Cancelled Toxic Granulation Cancelled Toxic Vacuolation Cancelled Dohle Bodies Cancelled Juana Rods Cancelled Platelet Estimate Cancelled Plt Morphology Comment Cancelled RBC Morphology Cancelled Cancelled Polychromasia Cancelled Hypochromasia Cancelled Basophilic Stippling Cancelled Anisocytosis Cancelled Microcytosis Cancelled Macrocytosis Cancelled Spherocytes Cancelled Sickle Cells Cancelled Target Cells Cancelled Tear Drop Cells Cancelled Ovalocytes Cancelled Stomatocytes Cancelled Null[place] Bodies Cancelled [place] Cells Cancelled Bite Cells Cancelled Crenated Cell Cancelled Acanthocytes (Spur) Cancelled Rouleaux Cancelled Schistocytes Cancelled Sodium 136 Potassium 3.9 Chloride 105 Carbon Dioxide 19.3 L Anion Gap 12 BUN 12 Creatinine 0.80 Estim Creat Clear Calc 111.30 Est GFR (MDRD) Non-Af 96 BUN/Creatinine Ratio 15.2 Glucose 104 H Calcium 8.4 Total Bilirubin 0.19 AST 18 ALT 9 Alkaline Phosphatase 66 Total Protein 7.1 Albumin 4.1 Globulin 3.0 Albumin/Globulin Ratio 1.4 Lipase 22 Serum , Qual NEGATIVE Urine Color Straw Urine Clarity Clear Urine pH 6.0 Ur Specific [place] 1.010 Urine Protein Negative Urine Glucose (UA) Normal Urine Ketones Negative Urine Occult Blood Negative Urine Nitrite Negative Urine Bilirubin Negative Urine Urobilinogen Normal Ur Leukocyte Esterase 500 H Urine RBC 0-5 SEEN Urine WBC 0-5 SEEN Ur Squamous Epith Cells 0-5 SEEN Urine Bacteria 0 SEEN Urine Mucus 0 SEEN Urine Trichomonas 0-5 SEEN 12/26/24 19:46 WBC 11.0 Corrected WBC RBC 4.07 L Hgb 12.6 Hct 37.3 MCV 91.6 MCH 31.0 MCHC 33.8 RDW Std Deviation 42.1 RDW Coeff of Imtiaz 12.7 Plt Count 275 MPV 9.4 Immature Gran % (Auto) 0.400 Neut % (Auto) 72.8 H Lymph % (Auto) 17.8 L Payne % (Auto) 7.3 Eos % (Auto) 1.5 Baso % (Auto) 0.2 Absolute Neuts (auto) 8.0 H Absolute Lymphs (auto) 1.96 Total Counted Neutrophils % (Manual) Band Neutrophils % Lymphocytes % (Manual) Monocytes % (Manual) Eosinophils % (Manual) Basophils % (Manual) Metamyelocytes % Myelocytes % Promyelocytes % Blast Cells % Plasma Cell % (Manual) Other Cells % Nucleated RBC % 0 Nucleated RBCs/100 WBC Differential Comment Diff Path Review Hypersegmented Neuts Atypical Lymphocytes Reactive Lymphocytes Smudge Cells Toxic Granulation Toxic Vacuolation Dohle Bodies Juana Rods Platelet Estimate Plt Morphology Comment RBC Morphology Polychromasia Hypochromasia Basophilic Stippling Anisocytosis Microcytosis Macrocytosis Spherocytes Sickle Cells Target Cells Tear Drop Cells Ovalocytes Stomatocytes Null-[place] Bodies [place] Cells Bite Cells Crenated Cell Acanthocytes (Spur) Rouleaux Schistocytes Sodium Potassium Chloride Carbon Dioxide Anion Gap BUN Creatinine Estim Creat Clear Calc Est GFR (MDRD) Non-Af BUN/Creatinine Ratio Glucose Calcium Total Bilirubin AST ALT Alkaline Phosphatase Total Protein Albumin Globulin Albumin/Globulin Ratio Lipase Serum , Qual Urine Color Urine Clarity Urine pH Ur Specific [place] Urine Protein Urine Glucose (UA) Urine Ketones Urine Occult Blood Urine Nitrite Urine Bilirubin Urine Urobilinogen Ur Leukocyte Esterase Urine RBC Urine WBC Ur Squamous Epith Cells Urine Bacteria Urine Mucus Urine Trichomonas Radiography Diagnostic Testing: Clinical Impression(s) from Imaging Studies Abdomen/Pelvis CT 12/26/24 18:46 IMPRESSION: NO ACUTE FINDINGS AT THE ABDOMEN OR PELVIS ON CONTRAST-ENHANCED CT. Reading Location: [facility] Discharge Plan Triage Chief Complaint: Abd Pain ED Provider: Tristen Paredes Dx/Rx/DC Orders Clinical Impression: Abdominal pain Prescriptions: New hyoscyamine sulfate [Levsin] 0.125 mg tablet 0.25 mg PO Q4H PRN (Reason: dyspepsia) Qty: 30 0RF ondansetron 4 mg tablet,disintegrating 4 mg PO Q6H PRN (Reason: nausea and vomiting) Qty: 20 0RF Primary Care Provider: Care Physician,No Primary Referrals: Care Physician,No Primary [Primary Care Provider] - Marlin Merrill Nadine, MANAGER [facility] [[facility]] - Activity Restrictions/Additional Instructions: Take prescriptions as prescribed. Your blood work did not show any acute findings and your CT scan did not show anything surgical going on. Follow-up your doctor in outpatient setting. Return with worsening symptoms any concerns. Print Language: Icelandic Disposition Disposition: Home, Self Care
[2024-12-26 19:15] LABS: Internal QC Validated? YES +Cl - CLEAR BKGD; Pregnancy, Serum, hCG Quali. NEGATIVE Negative; Record Kit Lot#, Serum Preg. 929381
[2024-12-26] MEDS: Dicyclomine 10 MG Capsule 20 MG PO (19:53)
[2024-12-26 20:00] VITALS: BP 130/71; PULSE 82; RESP 17; O2SAT 98
[2024-12-26 20:03] LABS: Absolute Lymphocyte Count 1.96 X10^3/uL (0.83-4.51); Basophil# 0.02 X10^3/uL; Basophil% 0.2 % (0-1); Eosinophil# 0.17 X10^3/uL; Eosinophils% 1.5 % (0-5); Hematocrit 37.3 % (37-47); Hemoglobin 12.6 g/dL (12.0-15.0); Lymphocyte # 1.96 X10^3/ul (0.83-4.51); Lymphocyte % 17.8 % (19-41); Mean Corp Hgb Conc 33.8 g/dL (32-36); Mean Corpuscular Volume 91.6 fL (81-99); Mean Platelet Vol. 9.4 fl (6.2-12.0); Monocyte% 7.3 % (0-10); NRBC Flagged by Analyzer 0 % (0-5); Neutrophil # 8.03 X10^3/uL (2.7-7.7); Neutrophil % 72.8 % (47-70); Platelet Count 275 K/mm3 (150-450); RBC Distribution Width CV 12.7 % (11.6-14.6); RBC Distribution Width SD 42.1 fl (35.1-43.9); Red Blood Count 4.07 M/mm3 (4.2-5.4)
--- NOTE | 2024-12-26 20:28 | CM.ED ---
Social Work Reason for visit: No PCP Patient confirmed that she does not currently have a PCP. [facility] provider list given to patient. No further needs identified at this time. Anna Marie Fortune, GOLDBEATER, DEPUTY PROSECUTING ATTORNEY
[2024-12-26] MEDS: Hyoscyamine Sulfate 0.125 MG Tablet 0.25 MG PO (21:50)
[2024-12-26 22:00] VITALS: PULSE 80; RESP 18; O2SAT 98
[2024-12-26 22:49] VITALS: BP 123/79; PULSE 80; RESP 18; TEMP 36.8; O2SAT 98
== END 2024-12-27 00:15 | disposition home or self-care (01) ==
PROVIDERS: Emergency Provider Emergency Medicine; Referring Provider Emergency Medicine; Visit Provider Emergency Medicine
DX: R10.9 Unspecified abdominal pain (principal)
CPT/HCPCS: 74177; 80053; 81001; 83690; 84703; 85025; 87631; 96361; 96374; 96375; 96376; 99283; Q9967; A4216; J2405